=== PATIENT | male | born 1935 | race Caucasian/White ===

== ENCOUNTER 2022-11-15 10:58 | Inpatient (IN) | payer OTHER, MEDICARE ==
[~2022-11-15] VITALS: Ht 172.7 cm; Wt 72.6 kg
[2022-11-15 11:00] VITALS: BP_SYST 131
--- NOTE | 2022-11-15 11:00 | NUR ---
BROUGHT IN BY [facility], PLACED IN BED #2 AND TRIAGED. REPORT GIVEN TO KEIKO
--- NOTE | 2022-11-15 11:02 | NUR ---
PT RECEIVED, CARE ASSUMED. PT BIB EMS FOR EVALUATION OF REST DISTRESS AND NON RESPONSIVE. PT IS OBTUNDED. PT ONLY MOVES WITH PAINFUL STIMULI. CONNECTED TO TELE MONITOR.
--- NOTE | 2022-11-15 11:05 | NUR ---
PT HAS VALID POLST WITH DNR, DR RAMSEY OUT TO WAITING ROOM TO SPEAK WITH PTS DAUGHTER, DAUGHTER. Addendum: 11/15/22 at 1128 by INGRID DAUGHTER AGREES WITH CARE
[2022-11-15] MEDS ORDERED: METO25TA3 PO (11:18)
[2022-11-15] MEDS ORDERED: DONE10TA44 PO (11:18)
[2022-11-15] MEDS ORDERED: MEMA10TA PO (11:18)
--- NOTE | 2022-11-15 11:18 | NUR ---
Medication reconciliation completed with information provided by [facility]. Any prior medication reconciliation on file was reviewed and corrected.
--- NOTE | 2022-11-15 11:29 | NUR ---
RETURNED FROM RADIOLOGY. SPORTS ATHLETIC TRAINER SPEAKING WITH REGARDING TESTING
--- NOTE | 2022-11-15 11:31 | NUR ---
FAMILY BROUGHT BACK TO BEDSIDE, DR RAMSEY AT BEDSIDE TO SPEAK WITH THEM.
[2022-11-15 11:46] LABS: BASOPHILS % (AUTO) 0.1 % (0.0-2.0); HEMATOCRIT 39.8 % (36-54); HEMOGLOBIN 13.2 g/dL (14.0-18.0); LYMPHOCYTES # (AUTO) 0.4 K/uL (1.0-5.5); LYMPHOCYTES % (AUTO) 2.9 % (20.5-51.5); MEAN CORPUSCULAR HEMOGLOBIN 30 pg (27-31); MEAN CORPUSCULAR HGB CONC 33 % (32-36); MEAN CORPUSCULAR VOLUME 90 fL (79.0-98.0); MONOCYTES % (AUTO) 6.4 % (1.7-9.3); NEUTROPHILS # (AUTO) 13.5 K/uL (1.8-7.7); NEUTROPHILS % (AUTO) 90.6 % (40.0-70.0); PLATELET COUNT (AUTO) 152 K/uL (130-430); RED BLOOD CELL COUNT(AUTO) 4.41 MIL/uL (4.2-6.2); RED CELL DISTRIBUTION WIDTH 13.9 % (9.0-15.0); WHITE BLOOD COUNT (AUTO) 14.9 K/uL (4.8-10.8)
[2022-11-15 11:51] LABS: ANION GAP 10 (5-15); CALCIUM 8.9 mg/dL (8.4-11.0); CHLORIDE 104 mmol/L (98-107); CREATININE 0.85 mg/dL (0.55-1.30); GLUCOSE 189 mg/dL (70-99); UREA NITROGEN, BLOOD 27 mg/dL (8-21)
--- NOTE | 2022-11-15 11:54 | NUR ---
PT MOVED TO ROOM #5 FOR MORE PRIVACY, MULTIPLE FAMILY MEMBERS AT BEDSIDE
[2022-11-15 11:58] LABS: ALANINE AMINOTRANSFERASE 22 U/L (12-78); ALBUMIN 3.4 g/dL (3.4-4.8); ASPARTATE AMINOTRANSFERASE 26 U/L (10-37); TOTAL BILIRUBIN 0.6 mg/dL (0.0-1.0)
--- NOTE | 2022-11-15 12:00 | NUR ---
RECEIVED PT FROM [facility]. ASSUMED CARE. PT DNR WITH COMFORT MEASURES.
--- NOTE | 2022-11-15 14:09 | NUR ---
Admit bed requested Patient will be admitted to care of . Admitted to TELEMETRY unit. Diagnosis INTRACRANIAL BLEED Inpatient (Yes or No) YES Observation (Yes or No) NO Orientation concerns or request close to nursing station (Yes or No) NO Covid Status NEGATIVE On vent or bipap NO Isolation requirements NONE Needs a sitter NO From Home (Yes or if No enter name of facility) [facility] Requires Dialysis (Yes or No) NO Med Rec Completed (Yes of No) YES
[2022-11-15] MEDS ORDERED: ONDANSETRON HCL 4 MG/2 ML VIAL IVP PRN (15:15)
[2022-11-15] MEDS ORDERED: MORPHINE 2 MG/ML INJ. SYRINGE IVP PRN (15:15)
[2022-11-15] MEDS ORDERED: LR 1,000 ML IV SCH (15:15)
[2022-11-15] MEDS ORDERED: NALOXONE HCL 0.4 MG/ML AMP (NARCAN) IVP PRN (15:15)
--- NOTE | 2022-11-15 17:10 | NUR ---
Admission note Received patient from ER via gurney, received SBAR report from Maria C PANDYA. Patient admitted with diagnosis of AMS/Respiratory distress. Left eye pupil dilated/fixe, right eye sluggish. Respiration regular, Rhonchi bilateral. Not moving bilateral upper and lower extremities. IV to right forearm patent. Patient on comfort measures, continue to monitor
--- NOTE | 2022-11-15 17:25 | NUR ---
Patient will be admitted to [facility] [place]. Admitted to TELEMETRY unit. Will go to room 133B. Belongings list completed. Complete and up to date summary report printed. SBAR report to be given at bedside with opportunity for questions.
[2022-11-15 17:27] VITALS: BP_SYST 100
--- NOTE | 2022-11-15 19:00 | NUR ---
Patient on comfort care, family at bedside, continue to monitor will endorse.
--- NOTE | 2022-11-15 19:40 | NUR ---
OPENING NOTE PT IS LYING IN BED WITH EYES CLOSED, DAUGHTERS BEDSIDE. NO APPARENT SIGNS OF DISTRESS NOTED AT THIS TIME. BED IN LOWEST POSITION WITH FALL AND SAFETY PRECAUTIONS IN PLACE. FAMILIES QUESTIONS ANSWERED AT THIS TIME.
[2022-11-15] MEDS: MORPHINE 2 MG/ML INJ. SYRINGE IVP PRN (20:51)
[2022-11-16 00:44] VITALS: BP_SYST 119
--- NOTE | 2022-11-16 07:25 | NUR ---
CLOSING NOTE PT IS LYING IN BED WITH EYES CLOSED, DAUGHTERS BEDSIDE. NO APPARENT DISTRESS NOTED AT THIS TIME. BED IN LOWEST POSITION WITH FALL AND SAFETY PRECAUTIONS IN PLACE. CALL LIGHT WITHIN REACH
--- NOTE | 2022-11-16 07:30 | NUR ---
RECEIVED PT, PT IS NON RESPONSIVE , FAMILY AT BEDSIDE, PT BP WNL, HR LOW AT 57, BREATHING IS EVEN, GURGLY ON BOTH LUNGS, ORAL CARE DONE, SUCTIONED ORALLY BUT NO TAKEN OUT. O2 SAT WAS LOW AT 85-89% ON 5L I PER NC. WILL CONT TO MONITOR.
[2022-11-16 07:47] VITALS: BP_SYST 125
--- NOTE | 2022-11-16 08:00 | NUR ---
PT PLACED ON 3LI SIMPLE FACE MASK PT IS A MOUTH BREATHER. O2 SAT WENT UP TO 93%. WILL CONT TO MONITOR.
[2022-11-16] MEDS: MORPHINE 2 MG/ML INJ. SYRINGE IVP PRN ×3 (09:48→22:34)
--- NOTE | 2022-11-16 09:52 | NUR ---
PT GIVEN MORPHINE 2 MG , PT IS HAVING LABORED BREATHING. PT SUCTION PRN, NOTHING CAME OUT, PT STILL SOUNDS GURLY.
[2022-11-16 12:00] VITALS: BP_SYST 125
--- NOTE | 2022-11-16 13:28 | NUR ---
Dr Alvarado was here and seen pt and spoke with pt's family at bedside.
[2022-11-16 16:00] VITALS: BP_SYST 121
[2022-11-16 19:00] VITALS: BP_SYST 141
--- NOTE | 2022-11-16 19:13 | NUR ---
Pt has been stable the whole shift, here for comfort measure, give pain meds for labored breathing with good effects. Family at bedside the whole shift. endorsed to night nurse.
--- NOTE | 2022-11-16 20:00 | NUR ---
pt.assessed.pt.quiescent.v/s assessed values wnl.o2-sat%=96%.o2 theraPY ADminsTERed via NASAL CANNULAE RaTE@2L/MIN. per flacc pain mgx pt.absent facial grimaces/body posturing.pt.repositioned.pt.attended to per comfort measures.morphine:2mg ivp;q-1hr/prn;pain ordered.pt.presents iv access location rt.forearm iv access iv lock status.
[2022-11-16 20:25] VITALS: BP_SYST 141
--- NOTE | 2022-11-16 22:30 | NUR ---
i have administered morphine:2mg ivp per flacc pain mgx assessment.to assess the efficacy of the medication per pain mgx protocol.
--- NOTE | 2022-11-17 | NUR ---
pt.assessed.pt.quiescent.o2-sat%=96%.per flacc pain mgx pt.absent facial grimaces/body posturing.pt.repositioned. call light/telephone placed w/in access of the pt.
[2022-11-17 00:40] VITALS: BP_SYST 143
--- NOTE | 2022-11-17 00:45 | NUR ---
CARE GIVEN PTS MOUTH WAS SUCTIONED, SMALL AMOUNT OF THICK BROWN SECRETIONS NOTED. ORAL CARE GIVEN.
--- NOTE | 2022-11-17 01:30 | NUR ---
i have administered morphine:2mg ivp.per flacc pain mgx assessment.to assess the efficacy of the medication;pain per pain mgx protocol.
[2022-11-17] MEDS: MORPHINE 2 MG/ML INJ. SYRINGE IVP PRN ×5 (01:38→16:40)
--- NOTE | 2022-11-17 04:00 | NUR ---
pt.assessed.pt.quiescent.per flacc pain mgx pt.absent facial grimaces/body posturing.pt.repositioned.call light/telephone placed w/in access of the pt.
--- NOTE | 2022-11-17 04:00 | NUR ---
ORAL CARE PTS MOUTH WAS SUCTIONED, MODERATE AMOUNT OF THICK BROWN SECRETIONS NOTED. ORAL CARE GIVEN.
--- NOTE | 2022-11-17 06:45 | NUR ---
ORAL CARE PTS MOUTH WAS SUCTIONED, MODERATE AMOUNT OF THICK BROWN SECRETIONS NOTED. ORAL CARE GIVEN.
[2022-11-17 08:00] VITALS: BP_SYST 135
--- NOTE | 2022-11-17 08:01 | NUR ---
Initial note: Report is received. Daughter is at the bedside. Pt is unresponsive and non-verbal. pt is DNR. Assessment is done and VS is checked. Bed in the lowest position. Bed alarm is on. Side rail x3 up. Call light in reach. Instructed daughter to call for any help.
--- NOTE | 2022-11-17 13:00 | NUR ---
Note: Daughter is at the bedside with patient. Patient's heart rate was elevated a little. Patient is continue on 10L O2 via rebreather mask. Morphine IVP was given. Bed in the lowest position. Side rails x2 up. Bed alarm on. Family was educated for the medication. Will continue to monitor pain level.
--- NOTE | 2022-11-17 13:15 | NUR ---
Met with family at bedside at the request of Net Software Architect. The family and I moved to the quiet room, where we discussed hospice services. I generally explained hospice services and coverage. The family was provided with hospice brochures. The family has a preferred hospice, [facility]; however [facility] is not longer in business, and according to the family, they are no longer accepting new patients. At this time, the family is aware that the patient does not have a hospice order. The patient is a DNR and on comfort care only. Upon receiving a hospice eval order, the family is aware that a clinical packet will be sent to the hospice of their choice for further carry out. A Choice Letter was not completed at this time. The daughters did advise that the patient does have a Power of Plastic Installer, Can Tsai ([phone]), the patient's little brother who is the POA. The daughters are aware that the little brother will make the final decision regarding hospice services.
[2022-11-17 13:16] VITALS: BP_SYST 145
--- NOTE | 2022-11-17 16:23 | NUR ---
Note: daughter and family are at the bedside. Patient eyes closed. No signs of pain or discomfort at this time. Bed alarm on. Side rails x 2 up. Call light in reach. Instructed family to call RN for any question or concern. Family verbalized understanding.
[2022-11-17] MEDS ORDERED: HYDROMORPHONE HCL IN 0.9% NACL 100 ML IV PRN (16:45)
[2022-11-17] MEDS ORDERED: HYDROmorphone 1 MG/ML INJ. CARTRIDGE IVP ONE ×2 (17:00)
[2022-11-17] MEDS ORDERED: NALOXONE HCL 0.4 MG/ML AMP (NARCAN) IVP PRN ×2 (17:00)
--- NOTE | 2022-11-17 17:00 | NUR ---
Note:Dr. Alvarado is here to see patient. Plan of care discussed with family. New order received.
[2022-11-17 17:07] VITALS: BP_SYST 131
--- NOTE | 2022-11-17 18:17 | NUR ---
Closing note: family at bedside. Dr. Alvarado went in to assess patient again after dilaudid. No sign of pain or discomfort. Bed alarm is on. Bed in the lowest position. Call light in reach. Instructed family to call nurse for any question and concern.
[2022-11-17] MEDS ORDERED: HYDROmorphone 1 MG/ML INJ. CARTRIDGE IVP PRN (19:00)
[2022-11-17 19:50] VITALS: BP_SYST 88
--- NOTE | 2022-11-17 19:50 | NUR ---
PM ASSESSMENT; -Pt is obtunded, resting in bed comfortably. NO s/s any acute distress noted. Pt is on NRB mask @ 10 L with [id number]%. Pt is comfort measures only. Saline alise of RFA patent,flushed well, no s/s any infiltration noted. Discussed with daughter at bedside this time, dtr verbalized understanding. All safety measures in place, side rails x2. Cont to monitor pt.
--- NOTE | 2022-11-17 23:07 | NUR ---
NOTES; -Pt is seem more shallow breathing, still pulse present upon palpating. Family is at bedside. A monitor shows sinus rhythm on a telemetry. Cont to monitor pt.
--- NOTE | 2022-11-17 23:25 | NUR ---
NOTES; PATIENT , PRONOUNCED BY JATIN DEY STORE SALES MANAGER AND [facility] NURSE AT BEDSIDE -Upon exam, patient didn't response to verbal or stimuli. Patient had absent pulse , RR, no vital signs, and asystole on a telemetry, heart sounds & breath sounds are absent, pupils are fixed and not reactive to light. Family Bridget Tsai dtr and another sister are at bedside.
--- NOTE | 2022-11-17 23:45 | NUR ---
NOTES; CALLED [facility] [phone] AND SPOKE WITH INDIGO-VOYAGE MANAGEMENT SYSTEM OPERATOR SHE SAID THAT PATIENT IS NOT CANDIDATE FOR DONOR AND MAY RELEASE BODY. SHE GAVE ME REF NUMBER: CC [id number] FOR THIS PATIENT.
--- NOTE | 2022-11-17 23:50 | NUR ---
PLANT CONTROLS SPECIALIST [phone] -SPOKE WITH CLERK ANTHONY. SHE STATED, " IT IS NOT PLANT CONTROLS SPECIALIST CASE. "
--- NOTE | 2022-11-18 00:08 | NUR ---
NOTES; FLETCHER INFORMED REGARDING AT [id number]
--- NOTE | 2022-11-18 00:14 | NUR ---
DENNIS CESAR, VIA [facility] CALLED AND WILL BE HERE ABOUT 1HR TO HOUR HALF
--- NOTE | 2022-11-18 01:00 | NUR ---
NOTES; -FAMILY LEFT AND BODY IS CLEANED AND REMOVED ANY TUBE LINING. BODY IS WRAPPED IN A BAG.
--- NOTE | 2022-11-18 02:17 | NUR ---
NOTES; STILL WAITING FOR [facility] MORTUARY PERSONNEL TO ROOFING APPLICATOR BODY.
--- NOTE | 2022-11-18 03:00 | NUR ---
NOTES; [facility] KYAW WITH HIS TEAM COMES TO PICK BODY AND JATIN-TALENT ACQUISITION CONSULTANT AWARES. -SIGNED AND RELEASED BODY.
== END 2022-11-17 23:25 | DRG 64 ==
LOC: SED 10:58 → STU 14:05
PROVIDERS: ADMIT Internal Medicine; ATTEND Internal Medicine
DX: I61.2 Nontraumatic intracerebral hemorrhage in hemisphere, unspecified (principal); J96.01 Acute respiratory failure with hypoxia; R65.10 Systemic inflammatory response syndrome (SIRS) of non-infectious origin without acute organ dysfunction; I10 Essential (primary) hypertension; I25.10 Atherosclerotic heart disease of native coronary artery without angina pectoris; Z20.822 Contact with and (suspected) exposure to COVID-19; Z66 Do not resuscitate; I46.9 Cardiac arrest, cause unspecified; E87.6 Hypokalemia; Z79.899 Other long term (current) drug therapy; Z51.5 Encounter for palliative care
CPT/HCPCS: 36415; 70450-TC; 71045; 76376; 80053; 83605; 83880; 84484; 85025; 87081; 93005; 99291; G0378; J1170; J2270; J2405